=== PATIENT | female | born 1950 | race Caucasian/White ===

== ENCOUNTER 2016-10-25 08:22 | Outpatient (CLI) | payer MEDICARE | END 2016-10-25 08:23 | LOC: NAVSJIPCSP 08:22 | PROVIDERS: ATTEND Internal Medicine | DX: E78.5 Hyperlipidemia, unspecified (principal); Z79.899 Other long term (current) drug therapy | CPT/HCPCS: 36415; 80061 ==

== ENCOUNTER 2017-02-13 08:26 | Outpatient (CLI) | payer MEDICARE ==
[2017-02-13 12:43] LABS: #Basophils 0.1 thou/uL (0.0-0.2); #Eosinphils 0.2 thou/uL (0.0-0.7); #Lymphocytes 2.1 thou/uL (1.20-3.40); #Monocytes 0.5 thou/uL (0.11-0.59); #Neutrophils 3.7 thou/uL (1.40-6.50); %Basophils 1.5 % (0.0-1.0); %Eosinophils 3.7 % (0.0-10.0); %Lymphocytes 31.3 % (21.0-51.0); %Monocytes 7.9 % (0.0-10.0); %Neutrophils 55.6 % (42.0-75.0); Hemoglobin 14.8 g/dL (12.0-16.0); Mean Corpuscular HGB CONC 32.8 g/dL (32.0-36.0); Mean Corpuscular Hemoglobin 30.4 pg (27.0-31.0); Mean Corpuscular Volume 92.7 fl (81.0-99.0); Mean Platelet Volume 6.8 fL (7.4-10.4); Platelet Count 246 thou/uL (130-400); RBC Distribution Width 12.3 % (11.5-14.5); Red Blood Cell (RBC) Count 4.85 mill/uL (4.20-5.40); White Blood Cell (WBC) Count 6.6 thou/uL (4.8-10.8)
[2017-02-13 14:17] LABS: Bilirubin Negative (Negative); Blood, Urine Negative (Negative); Clarity Clear (Clear); Glucose, Urine (Dipstick) Negative (Negative); Leukocyte Negative (Negative); Nitrite Negative (Negative); Protein, Urine (Dipstick) Negative (Neg-Trace); Specific Gravity, Urine 1.015 (1.005-1.030); Urobilinogen 0.2 mg/dL (0.2-1.0)
[2017-02-13 16:17] LABS: ALT (SGPT) 17 U/L (8-55); AST (SGOT) 18 U/L (5-34); Albumin 3.9 g/dL (3.4-4.8); Alkaline Phosphatase 56 U/L (40-150); Anion Gap 17 mmol/L (10-20); BUN (Urea Nitrogen) 13 mg/dL (9.8-20.1); Bilirubin, Total 0.4 mg/dL (0.2-1.2); Calc. Creatinine Clearance 0 mL/min (70-130); Calcium 9.2 mg/dL (7.8-10.44); Cardiac Risk 3.1 (Less than 4.5); Chloride 107 mmol/L (98-107); Cholesterol 139 mg/dl (< 200 Desired); Estimated GFR-MDRD 76; Globulin 2.3 g/dL (2.4-3.5); Glucose 85 mg/dL (80-115); HDL Cholesterol 45 mg/dL (>60 Neg Risk); LDL Cholesterol, Calculated 71 mg/dL; Potassium 4.5 mmol/L (3.5-5.1); Protein, Total 6.2 g/dL (6.0-8.3); Sodium 143 mmol/L (136-145); Triglycerides 115 mg/dL (Less than 150)
[2017-02-13 16:27] LABS: Carbon Dioxide 24 mmol/L (23-31)
== END 2017-02-13 08:27 | disposition home or self-care (01) ==
LOC: NAVSJIPCSP 08:26
PROVIDERS: ATTEND Internal Medicine
DX: E78.5 Hyperlipidemia, unspecified (principal); Z79.899 Other long term (current) drug therapy
CPT/HCPCS: 36415; 80053; 80061; 81003; 85025

== ENCOUNTER 2017-05-19 09:34 | Outpatient (CLI) | payer MEDICARE ==
[2017-05-19 12:42] LABS: Cardiac Risk 3.3 (Less than 4.5)
== END 2017-05-19 09:35 | disposition home or self-care (01) ==
LOC: NAVSJIPCSP 09:34
PROVIDERS: ATTEND Internal Medicine
DX: E78.5 Hyperlipidemia, unspecified (principal)
CPT/HCPCS: 36415; 80061

== ENCOUNTER 2020-04-21 10:38 | Outpatient (CLI) | payer MEDICARE ==
--- NOTE | 2020-04-21 11:15 | RAD ---
RADIOGRAPH LUMBAR SPINE 5 VIEWS: DATE: 04/21/2020 HISTORY: 70-year-old female with low back pain and lumbar spinal stenosis. TECHNIQUE: AP, lateral, lateral coned-down, flexion, and extension views. FINDINGS: 5 lumbar-type vertebrae. Vertebral body heights are maintained. High-grade left facet DJD at L5-S1. M ild disc space narrowing at L3-4. Moderate disc space narrowing at L4-5 and L5-S1. No major spondylolisthesis. No instability between flexion and extension. IMPRESSION: 1. Mild lumbar spondylosis overall, with several levels of mild degenerative disc disease. 2. High-grade left L5-S1 facet osteoarthrosis. 3. No instability.
== END 2020-04-21 10:39 | disposition home or self-care (01) ==
LOC: NAV RAD 10:38
PROVIDERS: ATTEND Neurological Surgery
DX: M48.061 Spinal stenosis, lumbar region without neurogenic claudication (principal); M47.817 Spondylosis without myelopathy or radiculopathy, lumbosacral region; M51.37 Other intervertebral disc degeneration, lumbosacral region
CPT/HCPCS: 72120

== ENCOUNTER 2020-04-24 12:09 | Outpatient (CLI) | payer MEDICARE ==
--- NOTE | 2020-04-24 12:27 | RAD ---
XR Chest Pa Lat STANDARD HISTORY: Preoperative evaluation COMPARISON: None FINDINGS: The heart size is normal. The aorta is tortuous. The lungs are well expanded without focal areas of c onsolidation, pneumothorax or pleural effusions. There is elevation the right hemidiaphragm with minimal atelectatic changes versus scarring in the lung bases. There is evidence of old granulomatous disease. Degenerative changes are present in the spine..
== END 2020-04-24 12:10 | disposition home or self-care (01) ==
LOC: NAV RAD 12:09
PROVIDERS: ATTEND Internal Medicine
DX: Z01.818 Encounter for other preprocedural examination (principal)
CPT/HCPCS: 71046

== ENCOUNTER 2021-11-22 09:45 | Outpatient (CLI) | payer MEDICARE | END 2021-11-22 09:46 | disposition home or self-care (01) | LOC: NAV RAD 09:45 | PROVIDERS: ATTEND Family Medicine | DX: M47.26 Other spondylosis with radiculopathy, lumbar region (principal) | CPT/HCPCS: 72110 ==